=== PATIENT | female | born 1950 | race Caucasian/White ===

== ENCOUNTER 2021-05-17 16:15 | Emergency (ER) | payer MEDICARE, OTHER ==
[2021-05-17 16:34] VITALS: BP 144/80
--- NOTE | 2021-05-17 16:51 | ERPHSYRPT ---
- History of Present Illness Time Seen by Provider: 05/17/21 16:21 Source: patient Exam Limitations: no limitations Patient Subjective Stated Complaint: pt here for a fall, twisted left knee and landed on carpet striking left knee, now co pain to left knee Triage Nursing Assessment: pt alert, resp easy, skin w/p/d, face mask in place, no swelling noted, pain behind knee Physician History: 70 years old female with history of bilateral total knee arthroplasty presented in ER with chief complaint of fall and left knee pain. Patient reports she was walking at home, twisted her foot and fell on the floor hitting her left lateral knee against the floor. She was able to get up with help but later on noticed increased swelling of left knee on the upper aspect with difficulty movements/weightbearing. Pain is moderate to severe with ambulation/weightbearing and currently pain-free for being still. No injury anywhere else. Occurred: this afternoon Injuries/Pain Location: lower extremity Loss of Consciousness: no loss of consciousness Quality: sharpness Severity of Pain-Max: moderate Severity of Pain-Current: none Modifying Factors: Improves With: rest. Worsens With: movement Associated Symptoms (Fall): denies symptoms Allergies/Adverse Reactions: Sulfa (Sulfonamide Antibiotics) Adverse Reaction (Verified 05/17/21 16:35) Home Medications: Amlodipine Besylate 5 mg PO DAILY 05/17/21 [History] Atorvastatin Calcium 1 ea DAILY 05/17/21 [History] Azelastine Nasal [Astelin Nasal] 1 ea DAILY 05/17/21 [History] Calcium Carbonate/Vitamin D3 [Calcium 600 mg-D3 10 Mcg Sfgl] 1 ea DAILY 05/17/21 [History] Dicyclomine HCl 1 ea DAILY 05/17/21 [History] Gabapentin 100 mg [Neurontin 100 MG] 1 ea DAILY 05/17/21 [History] Multivitamin [Multivitamins] 1 ea DAILY 05/17/21 [History] Pantoprazole 20 mg [Protonix 20MG Tablet] 1 ea DAILY 05/17/21 [History] Spironolactone 25 mg [Aldactone 25 MG] 25 mg PO DAILY 05/17/21 [History] Hx Influenza Vaccination/Date Given: No Hx Pneumococcal Vaccination/Date Given: Yes (year ago) Immunizations Up to Date: Yes Travel Risk - International Travel Have you traveled outside of the country in past 3 weeks: No - Coronavirus Screening Are you exhibiting any of the following symptoms?: No - Vaccine Status Have you recieved a Covid-19 vaccination: No - Review of Systems Constitutional: No Symptoms Ears, Nose, & Throat: No Symptoms Respiratory: No Symptoms Cardiac: No Symptoms Abdominal/Gastrointestinal: No Symptoms Genitourinary Symptoms: No Symptoms Musculoskeletal: Arthralgias, Injury, Joint Pain, Joint Swelling Skin: No Symptoms Neurological: No Symptoms Psychological: No Symptoms Hematologic/Lymphatic: No Symptoms Immunological/Allergic: No Symptoms - Past Medical History Pertinent Past Medical History: Yes Neurological History: No Pertinent History Cardiac History: High Cholesterol, Hypertension Respiratory History: No Pertinent History Endocrine Medical History: No Pertinent History Musculoskeletal History: Osteoarthritis Other Medical History: L TKA, R JAVI, needs to have L JAVI - Past Surgical History Past Surgical History: Yes Gastrointestinal: Cholecystectomy Musculoskeletal: Orthopedic Surgery Other Surgical History: knee and hips replaced - Social History Smoking Status: Never smoker Exposure to second hand smoke: No Drug Use: none Patient Lives Alone: Yes - Female History Hx Last Menstrual Period: post Hx Now: No - Nursing Vital Signs Nursing Vital Signs: Initial Vital Signs Temperature 98.7 F 05/17/21 16:21 Pulse Rate 63 05/17/21 16:21 Respiratory Rate 16 05/17/21 16:21 Blood Pressure 144/80 05/17/21 16:21 O2 Sat by Pulse Oximetry 95 05/17/21 16:21 Pain Scale Pain Intensity 7 - [place] Coma Score Best Eye Response (Bruno): (4) open spontaneously Best Verbal Response ([place]): (5) oriented - Physical Exam General Appearance: no apparent distress Head Injury: no evidence of injury Eye Exam: PERRL/EOMI, eyes nml inspection ENT Exam: airway nml, No evidence of ENT injury Neck Exam: supple, full range of motion Respiratory/Chest Exam: normal breath sounds, respiratory distress Cardiovascular Exam: normal heart sounds, regular rate/rhythm Back Exam: normal inspection, normal range of motion Extremity Exam: joint swelling (Left knee above patella positive by Tarik. Tenderness on the lateral aspect. Mildly limited range of motion.), pain with movement Neurologic Exam: alert, oriented x 3, cooperative, lapel baster II-XII nml as tested Skin Exam: normal color SpO2 Interpretation: normal SpO2: 95 O2 Delivery: Room Air Ordered Tests: Active Orders 24 hr Category Date Time Status KNEE (3 VIEWS) Stat Exams 05/17/21 Completed Medication Summary Discontinued Medications Generic Name Dose Route Start Last Admin Trade Name Elsi PRN Reason Stop Dose Admin Hydrocodone Bitart/Acetaminophen 2 tab 05/17/21 17:59 05/17/21 18:46 Hydrocodone/Apap 5/325 Mg Tablet PO 05/17/21 18:00 2 tab SENT HOME W/ PATIENT ONE Administration Hydrocodone Bitart/Acetaminophen Confirm 05/17/21 18:41 Hydrocodone/Apap 5/325 Mg Tablet Administered 05/17/21 18:42 Dose 2 tab .ROUTE .STK-MED ONE - Progress Progress: unchanged Progress Note: 05/17/21 17:56 She does not want any pain medication currently. Does have some effusion but I did not appreciate any fracture dislocation. Hardware well in place. Placed in knee immobilizer and recommended outpatient orthopedic surgery follow-up. Counseled pt/family regarding: diagnosis, need for follow-up, rad results - Departure Departure Disposition: Home Clinical Impression: Acute pain of left knee Condition: Stable Critical Care Time: No Referrals: ROSE SILVA MD [Primary Care Provider] - Follow Up with PCP/3 days Instructions: Knee Sprain (DC), Preventing Falls Additional Instructions: Take pain medications as needed. Follow-up with [facility] clinic early Wednesday morning for reevaluation. Return to ER for worsening. Prescriptions: Hydrocodone/Acetaminophen [Hydrocodone-Acetamin 5-325 mg] 1 tab PO Q6HPRN PRN 3 Days #12 tablet MDD 4 PRN Reason: Pain
[2021-05-17] MEDS ORDERED: NORCO 5/325 MG PO ONE (17:59)
[2021-05-17 18:39] VITALS: PULSE 78
[2021-05-17] MEDS ORDERED: NORCO 5/325 MG ONE (18:41)
--- NOTE | 2021-05-17 19:58 | XRAY ---
Indication: Pain following fall. Comparison: None 3 view left knee demonstrates osteopenia, total knee arthroplasty with intact prosthesis, large nonspecific effusion, anterior soft tissue swelling, scattered medial subcutaneous venous varicosities, and mild scattered vascular calcifications. No other bony, articular, or soft tissue abnormalities.
[2021-05-17 21:18] VITALS: O2SAT 95
== END 2021-05-17 18:51 | disposition home or self-care (01) ==
LOC: ED 16:15
DX: M25.562 Pain in left knee (principal); W01.0XXA Fall on same level from slipping, tripping and stumbling without subsequent striking against object, initial encounter; Y92.009 Unspecified place in unspecified non-institutional (private) residence as the place of occurrence of the external cause; Z96.653 Presence of artificial knee joint, bilateral; I10 Essential (primary) hypertension; E78.5 Hyperlipidemia, unspecified; Z79.891 Long term (current) use of opiate analgesic
CPT/HCPCS: 73562; 99284; L1830; A9270-GY

== ENCOUNTER 2022-06-10 08:49 | Emergency (ER) | payer MEDICARE, OTHER ==
[2022-06-10] MEDS ORDERED: Sodium Chloride 0.9% 1000 ML 1,000 ML IV STA ×2 (09:18→11:37)
[2022-06-10 10:12] LABS: ANION GAP 12.3 MEQ/L (5-15); Calcium 8.5 mg/dL (8.4-10.2); Creatinine 1 1.07 mg/dL (0.52-1.04); EST GLOMERULAR FILTRATION RATE 53.4 ML/MIN
[2022-06-10 10:16] LABS: Potassium 2.9 mmol/L (3.5-5.1)
[2022-06-10] MEDS ORDERED: POTASSIUM CHLORIDE 20 mEq IN WATER 100ML 100 ML IV SCH (11:00)
[2022-06-10 11:15] VITALS: O2SAT 98
[2022-06-10] MEDS ORDERED: Sodium Chloride 0.9% 1000 ML 1,000 ML ONE ×2 (11:21→11:55)
--- NOTE | 2022-06-10 11:48 | ERPHSYRPT ---
- History of Present Illness Time Seen by Provider: 06/10/22 11:15 Source: patient Exam Limitations: no limitations Patient Subjective Stated Complaint: pt sent over from outpt infusion for abnormal labs and pauses on her rythm strip. she states she was sent there today for fluids because she has not been eating well for a week now. no vomiting , just states she doesnt feel like eating, Triage Nursing Assessment: pt arrived per wc, alert, resp easy, skin w/d/p. no pain, no edema, able to get undressed, has iv to right wrist per outpt Physician History: This is a 71-year-old white female who was sent to the emergency department from the infusion center where the patient was undergoing infusion of normal saline fluid because of a concern of dehydration. Patient contacted her nurse practitioner Wendy this morning and nurse practitioner Wendy sent the patient to the infusion center and labs were obtained. Her potassium was 2.9. They obtained a twelve-lead EKG where there was concern of some changes that should be evaluated further in the emergency department. Patient denied chest pain. She denies shortness of breath. She did state that she has had some abdominal discomfort that was generalized in location and more of an achiness in the last week. However in the last 2 days though symptoms seem to have resolved. Patient denies vomiting. She denies bright red blood per rectum. She denies dark tarry stools. Patient was sent to the emergency department with potassium infusion in place. Patient states that she does have a gusset maker Dr. Huseyin Rodriguez but she sees him not for any known cardiac issue but to control her blood pressure. Patient states she has an appointment to see him tomorrow morning. Patient has a history of hyperlipidemia, gastroesophageal reflux disease hypertension, bronchitis and osteoarthritis. Timing/Duration: today Severity: mild Associated Symptoms: abdominal pain, weakness, No nausea, No vomiting, No shortness of breath, No cough, No chest pain Allergies/Adverse Reactions: Sulfa (Sulfonamide Antibiotics) Adverse Reaction (Verified 06/10/22 11:13) Home Medications: Atorvastatin Calcium 1 ea DAILY 05/17/21 [History] Azelastine Nasal [Astelin Nasal] 1 ea DAILY 05/17/21 [History] Calcium Carbonate/Vitamin D3 [Calcium 600 mg-D3 10 Mcg Sfgl] 1 ea DAILY 05/17/21 [History] Dicyclomine HCl 1 ea DAILY 05/17/21 [History] Gabapentin [Neurontin ] 1 ea DAILY 05/17/21 [History] Multivitamin [Multivitamins] 1 ea DAILY 05/17/21 [History] Pantoprazole 20 mg [Protonix 20MG Tablet] 1 ea DAILY 05/17/21 [History] Spironolactone 25 mg [Aldactone 25 MG] 25 mg PO DAILY 05/17/21 [History] Alendronate Sodium [Fosamax] 70 mg PO WEEKLY 06/10/22 [History] Cetirizine HCl [Zyrtec] 10 mg PO DAILY PRN PRN 06/10/22 [History] Famotidine [Pepcid] 40 mg PO BID 06/10/22 [History] Guaifenesin 600 mg ER [Mucinex 600MG ER Tabs] 1,200 mg PO Q12H PRN PRN 06/10/22 [History] Levalbuterol HCl 1.25 MG/0.5M* [Xopenex 1.25 MG/0.5 ML UD NEBULE] 1.25 mg IH [id number] PRN 06/10/22 [History] Vit C/E/Zn/Coppr/Lutein/Zeaxan [Eye Multivitamin Softgel] 1 each PO DAILY 06/10/22 [History] carvediloL [Carvedilol] 25 mg PO BID 06/10/22 [History] Hx Tetanus, Diphtheria Vaccination/Date Given: No Hx Influenza Vaccination/Date Given: No Hx Pneumococcal Vaccination/Date Given: Yes Immunizations Up to Date: No Travel Risk - International Travel Have you traveled outside of the country in past 3 weeks: No - Coronavirus Screening Are you exhibiting any of the following symptoms?: No Close contact with a COVID-19 positive Pt in past 14-21 Days: No - Vaccine Status Have you recieved a Covid-19 vaccination: No - Review of Systems Constitutional: Weakness Eyes: No Symptoms Ears, Nose, & Throat: No Symptoms Respiratory: No Symptoms Cardiac: No Symptoms Abdominal/Gastrointestinal: Abdominal Pain (During the last week but less so in the last 2 days) Genitourinary Symptoms: No Symptoms Musculoskeletal: No Symptoms Skin: No Symptoms Neurological: No Symptoms Psychological: No Symptoms Endocrine: No Symptoms Hematologic/Lymphatic: No Symptoms Immunological/Allergic: No Symptoms All Other Systems: Reviewed and Negative - Past Medical History Pertinent Past Medical History: Yes Neurological History: Stroke ENT History: No Pertinent History Cardiac History: High Cholesterol, Hypertension Respiratory History: Bronchitis, Other Endocrine Medical History: No Pertinent History Musculoskeletal History: Osteoarthritis Other Medical History: SX HX: KATHERIN HIP AND KNEE REPLACEMENTS, pt denies a stroke but is not certain - Past Surgical History Past Surgical History: Yes Gastrointestinal: Cholecystectomy Musculoskeletal: Orthopedic Surgery Other Surgical History: knee and hips replaced - Social History Smoking Status: Never smoker Exposure to second hand smoke: No Drug Use: none Patient Lives Alone: No - Nursing Vital Signs Nursing Vital Signs: Initial Vital Signs Temperature 99.3 F 06/10/22 09:07 Pulse Rate 73 06/10/22 09:07 Respiratory Rate 16 06/10/22 09:07 Blood Pressure 114/60 06/10/22 09:07 O2 Sat by Pulse Oximetry 95 06/10/22 09:07 Pain Scale Pain Intensity 0 - Physical Exam General Appearance: no apparent distress, alert, anxiety Eye Exam: PERRL/EOMI, eyes nml inspection Ears, Nose, Throat Exam: normal ENT inspection, moist mucous membranes Neck Exam: normal inspection, non-tender, supple, full range of motion Respiratory Exam: normal breath sounds, lungs clear, airway intact, No chest tenderness, No respiratory distress Cardiovascular Exam: regular rate/rhythm, normal heart sounds, normal peripheral pulses Gastrointestinal/Abdomen Exam: soft, normal bowel sounds, No tenderness Pelvic Exam: not done Rectal Exam: not done Back Exam: normal inspection, normal range of motion, No CVA tenderness Extremity Exam: normal inspection, normal range of motion, pelvis stable Neurologic Exam: alert, oriented x 3, cooperative, bioinformatics programmer II-XII nml as tested, normal mood/affect, nml cerebellar function, nml station & gait, sensation nml Skin Exam: normal color, warm, dry Lymphatic Exam: No adenopathy SpO2 Interpretation: normal SpO2: 98 O2 Delivery: Room Air - Course Nursing assessment & vital signs reviewed: Yes EKG Interpreted by Me: RATE (98), A-fib, NORMAL QRS, Other (No acute ischemic changes on today's EKG.) Ordered Tests: Active Orders 24 hr Category Date Time Status EKG-ER Only STAT Care 06/10/22 11:37 Active ABDOMEN AND PELVIS W/0 CONTRAS [CT] Stat Exams 06/10/22 11:38 Completed AMYLASE Stat Lab 06/10/22 11:51 Completed BMP Stat Lab 06/10/22 09:45 Completed BMP Stat Lab 06/10/22 13:52 Completed CBC W DIFF Stat Lab 06/10/22 11:51 Completed LIPASE Stat Lab 06/10/22 11:51 Completed MAGNESIUM Stat Lab 06/10/22 11:51 Completed Manual Differential NC Stat Lab 06/10/22 11:51 Completed TROPONIN Q4H Lab 06/10/22 11:51 Completed TROPONIN Q4H Lab 06/10/22 15:45 Ordered TROPONIN Q4H Lab 06/10/22 19:45 Ordered Medication Summary Discontinued Medications Generic Name Dose Route Start Last Admin Trade Name Freq PRN Reason Stop Dose Admin Sodium Chloride 1,000 mls @ 999 mls/hr 06/10/22 09:18 06/10/22 13:07 Sodium Chloride 0.9% 1000 Ml IV 06/10/22 10:18 Infused .Q1H1M STA Infusion Potassium Chloride 100 mls @ 50 mls/hr 06/10/22 11:00 06/10/22 10:56 Potassium Chloride 20 Meq In Water 100ml IV 06/10/22 12:59 50 mls/hr 1100 SARAH Administration Sodium Chloride Confirm 06/10/22 11:21 Sodium Chloride 0.9% 1000 Ml Administered 06/10/22 11:22 Dose 1,000 mls @ ud .ROUTE .STK-MED ONE Sodium Chloride 1,000 mls @ 999 mls/hr 06/10/22 11:37 06/10/22 13:08 Sodium Chloride 0.9% 1000 Ml IV 06/10/22 12:37 Infused .Q1H1M STA Infusion Sodium Chloride Confirm 06/10/22 11:55 Sodium Chloride 0.9% 1000 Ml Administered 06/10/22 11:56 Dose 1,000 mls @ ud .ROUTE .STK-MED ONE Lab/Rad Data: Laboratory Result Diagrams 06/10/22 11:51 06/10/22 13:52 Laboratory Results 06/10/22 06/10/22 06/10/22 Range/Units 13:52 11:51 11:51 WBC (4.0-10.5) x10^3/uL RBC (4.1-5.4) x10^6/uL Hgb (12.0-16.0) g/dL Hct (35-47) % MCV (78-100) fL MCH (26-32) pg MCHC (32-36) g/dL RDW (11.5-14.0) % Plt Count (150-450) x10^3/uL MPV (7.5-11.0) fL Gran % (36.0-66.0) % Immature Gran % (Auto) (0.00-0.4) % Nucleat RBC Rel Count (0.00-0.1) % Eos # (Auto) (0-0.5) x10^3/uL Immature Gran # (Auto) (0.00-0.03) x10^3u/L Absolute Lymphs (auto) (1.0-4.6) x10^3/uL Absolute Monos (auto) (0.0-1.3) x10^3/uL Absolute Nucleated RBC (0.00-0.01) x10^3u/L Lymphocytes % (24.0-44.0) % Monocytes % (0.0-12.0) % Eosinophils % (0.00-5.0) % Basophils % (0.0-0.4) % Absolute Granulocytes (1.4-6.9) x10^3/uL Segmented Neutrophils (36.0-66.0) % Lymphocytes (Manual) (24-44) % Monocytes (Manual) (0.0-12.0) % Eosinophils (Manual) (0.00-3.0) % Basophils # (0-0.4) x10^3/uL Atypical Lymphocytes % Platelet Estimate (NORMAL) RBC Morphology Sodium 135 L (137-145) mmol/L Potassium 3.4 L (3.5-5.1) mmol/L Chloride 104 (98-107) mmol/L Carbon Dioxide 28 (22-30) mmol/L Anion Gap 6.7 (5-15) MEQ/L BUN 16 (7-17) mg/dL Creatinine 0.82 (0.52-1.04) mg/dL Estimated GFR > 60.0 ML/MIN Glucose 91 (74-106) mg/dL Calcium 7.7 L (8.4-10.2) mg/dL Magnesium 2.6 H (1.6-2.3) mg/dL Troponin I 0.013 (0.000-0.034) ng/mL Amylase 60 (30-110) U/L Lipase 123 (23-300) U/L 06/10/22 06/10/22 Range/Units 11:51 09:45 WBC 4.5 (4.0-10.5) x10^3/uL RBC 4.20 (4.1-5.4) x10^6/uL Hgb 12.9 (12.0-16.0) g/dL Hct 40.2 (35-47) % MCV 95.7 (78-100) fL MCH 30.7 (26-32) pg MCHC 32.1 (32-36) g/dL RDW 13.6 (11.5-14.0) % Plt Count 188 (150-450) x10^3/uL MPV 9.2 (7.5-11.0) fL Gran % 55.1 (36.0-66.0) % Immature Gran % (Auto) 0.4 (0.00-0.4) % Nucleat RBC Rel Count 0.0 (0.00-0.1) % Eos # (Auto) 0.11 (0-0.5) x10^3/uL Immature Gran # (Auto) 0.02 (0.00-0.03) x10^3u/L Absolute Lymphs (auto) 1.51 (1.0-4.6) x10^3/uL Absolute Monos (auto) 0.35 (0.0-1.3) x10^3/uL Absolute Nucleated RBC 0.00 (0.00-0.01) x10^3u/L Lymphocytes % 33.6 (24.0-44.0) % Monocytes % 7.8 (0.0-12.0) % Eosinophils % 2.4 (0.00-5.0) % Basophils % 0.7 (0.0-0.4) % Absolute Granulocytes 2.48 (1.4-6.9) x10^3/uL Segmented Neutrophils 51 (36.0-66.0) % Lymphocytes (Manual) 34 (24-44) % Monocytes (Manual) 10 (0.0-12.0) % Eosinophils (Manual) 2 (0.00-3.0) % Basophils # 0.03 (0-0.4) x10^3/uL Atypical Lymphocytes 3 % Platelet Estimate NORMAL (NORMAL) RBC Morphology NORMAL Sodium 136 L (137-145) mmol/L Potassium 2.9 L* (3.5-5.1) mmol/L Chloride 98 (98-107) mmol/L Carbon Dioxide 29 (22-30) mmol/L Anion Gap 12.3 (5-15) MEQ/L BUN 20 H (7-17) mg/dL Creatinine 1.07 H (0.52-1.04) mg/dL Estimated GFR 53.4 ML/MIN Glucose 111 H (74-106) mg/dL Calcium 8.5 (8.4-10.2) mg/dL Magnesium (1.6-2.3) mg/dL Troponin I (0.000-0.034) ng/mL Amylase (30-110) U/L Lipase (23-300) U/L - Progress Progress: improved, re-examined Progress Note: 06/10/22 11:58 Medical decision making: This patient was sent over from the infusion clinic and we obtained history from the nursing staff at that facility as well as reviewing old records here at [facility]. We also obtained information from the labs that were drawn earlier this morning. I reviewed those labs and made additional changes. Patient has a history of chronic hypertension. I reviewed the EKG myself that was performed earlier today and based on the above I am ordering additional lab work including magnesium amylase lipase and obtaining a CAT scan of the abdomen and pelvis. We will repeat the twelve-lead EKG based on the patient's prior EKG findings and lab work. We will give additional intravenous fluid and repeat a BMP to determine if the patient needs additional potassium supplementation. 06/10/22 13:21 CT scan of the abdomen pelvis without contrast shows an enlarging left inguinal hernia without complications. There is no evidence of free air. There is no evidence of intra-abdominal free fluid. There is no evidence of diverticulitis. 06/10/22 14:29 Medical decision making: Patient states that she has no pain whatsoever. After rehydration, she states she is feeling better. She ate a sandwich here in the emergency department. Her diagnosis is hypokalemia. We have made a packet that she can provide her gusset maker at tomorrow's appointment that includes today's twelve-lead EKG and laboratory results. Patient is being discharged to home with instructions to take potassium 10 mEq twice a day for 2 days and to return to the laboratory department on 06/12/2022 to repeat BMP. Results will be faxed to nurse practitioner Wendy. Counseled pt/family regarding: lab results, diagnosis, need for follow-up, rad results - Departure Departure Disposition: Home Clinical Impression: Mild dehydration, Hypokalemia Condition: Stable Critical Care Time: No Referrals: ROSE SILVA MD [Primary Care Provider] - Follow up/PCP as directed Additional Instructions: Drink plenty of fluids. Advance diet as tolerated. Take your medication as prescribed. Keep your appointment with your gusset maker for tomorrow morning. Return to [facility] laboratory department on 06/12/2022 for repeat lab draw. Prescriptions: Potassium Chloride Tab* [Klor Con] 10 meq PO BID #4 tab
[2022-06-10 11:54] LABS: Absolute Neutrophil Ct (ANC) 2.48 x10^3/uL (1.4-6.9); Basophil (Absolute #) 0.03 x10^3/uL (0-0.4); Eosinophil % 2.4 % (0.00-5.0); Eosinophil (Absolute #) 0.11 x10^3/uL (0-0.5); Hematocrit 40.2 % (35-47); Hemoglobin 12.9 g/dL (12.0-16.0); Lymphocyte (Absolute #) 1.51 x10^3/uL (1.0-4.6); Lymphocytes % 33.6 % (24.0-44.0); Mean Cell Volume 95.7 fL (78-100); Mean Corpuscular Hemoglobin 30.7 pg (26-32); Mean Corpuscular Hgb Concent. 32.1 g/dL (32-36); Mean Platelet Volume 9.2 fL (7.5-11.0); Monocyte (Absolute #) 0.35 x10^3/uL (0.0-1.3); Monocytes % 7.8 % (0.0-12.0); Neutrophil % 55.1 % (36.0-66.0); Platelet Count 188 x10^3/uL (150-450); Red Cell Distribution Width 13.6 % (11.5-14.0); White Blood Count 4.5 x10^3/uL (4.0-10.5)
[2022-06-10 12:08] LABS: MAGNESIUM 2.6 mg/dL (1.6-2.3)
[2022-06-10 13:04] LABS: ATYPICAL LYMPHS 3 %; Eosinophil 2 % (0.00-3.0); Lymphocytes 34 % (24-44); Monocyte 10 % (0.0-12.0); Platelet Estimate NORMAL (NORMAL); Total Cells Counted 100
--- NOTE | 2022-06-10 13:18 | XRAY ---
Indication: Diarrhea. Decreased appetite. Multiple contiguous axial images obtained through the abdomen and pelvis without contrast. Comparison: May 08, 2015 Lung bases again demonstrate minimal dependent atelectasis. No infiltrate or effusion. Heart not enlarged. There has been interval left total hip arthroplasty with stable right hip arthroplasty, both producing extensive beam artifact limiting evaluation of the pelvis. Noncontrasted stomach and bowel loops nonobstructed. Normal appendix. Again descending and sigmoid diverticulosis without diverticulitis. Again cholecystectomy. No free fluid/air. Remaining liver, pancreas, spleen, adrenal glands, kidneys, ureters, bladder, and uterus are unremarkable for noncontrast exam. Again moderate scattered aortoiliac calcifications without AAA. Osseous structures intact again with mild osteopenia, mild degenerative changes throughout the spine, and minimal grade 1 L4 anterolisthesis. Interval enlarging left inguinal hernia at least 3.7 cm in diameter with loop of small bowel herniating without incarceration/obstruction. Impression: 1. Pelvis limited due to worsening extreme beam artifact from bilateral total hip arthroplasty. 2. Interval enlarging left inguinal hernia without complications. 3. Again colonic diverticulosis, arteriosclerotic disease, and chronic bony findings. 4. Remaining CT abdomen/pelvis without contrast exam is negative.
[2022-06-10 14:09] LABS: ANION GAP 6.7 MEQ/L (5-15); BLOOD UREA NITROGEN 16 mg/dL (7-17); CHLORIDE 104 mmol/L (98-107); Calcium 7.7 mg/dL (8.4-10.2); Carbon Dioxide 28 mmol/L (22-30); Creatinine 1 0.82 mg/dL (0.52-1.04); EST GLOMERULAR FILTRATION RATE > 60.0 ML/MIN; Glucose 91 mg/dL (74-106); Potassium 3.4 mmol/L (3.5-5.1); SODIUM 135 mmol/L (137-145)
[2022-06-10 14:37] VITALS: BP 122/80; PULSE 75
== END 2022-06-10 14:48 | disposition home or self-care (01) ==
LOC: INFUSION 08:49 → ED 08:49 → EDSTATUS 11:07 → ED 14:48
DX: E86.0 Dehydration (principal); E87.6 Hypokalemia; R94.31 Abnormal electrocardiogram [ECG] [EKG]; E78.5 Hyperlipidemia, unspecified; I10 Essential (primary) hypertension; Z79.899 Other long term (current) drug therapy; Z28.310 Unvaccinated for COVID-19
CPT/HCPCS: 36415; 74176; 80048; 82150; 83690; 83735; 84484; 85025; 93005; 96360; 96361; 96365; 96366; 99211; 99284; J3480

== ENCOUNTER 2025-01-01 08:14 | Day surgery (SDC) | payer MEDICARE, OTHER ==
[2025-01-01] MEDS ORDERED: Lactated Ringers 1,000 ML IV ONE (08:18)
--- NOTE | 2025-01-01 08:27 | HP ---
HISTORY OF PRESENT ILLNESS: No prior upper endoscopy. Family history of colon cancer. Some narrowing and dilated in the past. Was in the hospital with reflux. Has intermittent hoarseness from allergies. Patient has all the time. No epigastric pain currently. PAST MEDICAL HISTORY: Reflux, CHF, hyperlipidemia, hypertension. MEDICATIONS: Calcium 500 plus vitamin D, Mucinex Allergy, benzonatate, amlodipine, famotidine, omeprazole, atorvastatin, dicyclomine, spironolactone, carvedilol, PreserVision AREDS capsules, gabapentin, Nitrostat p.r.n., Carafate. ALLERGIES: Metoclopramide and sulfa and peanuts. PAST SURGICAL HISTORY: Had sinus surgery, had cholecystectomy in the past, had cardiac cath in the past, had bilateral hip arthroplasty, had bilateral knee arthroplasty SOCIAL HISTORY: No smoker. No alcohol abuse. FAMILY HISTORY: Heart disease. REVIEW OF SYSTEMS: Twelve systems reviewed. No chest pain or palpitations. Other systems negative or noncontributory as above and per preadmission questionnaire. PHYSICAL EXAMINATION: GENERAL: Height 5 feet 4 inches, BMI 27.64. No acute distress. HEENT: Sclerae anicteric. Extraocular movements are intact. NECK: No JVD. CARDIOVASCULAR: Regular rate and rhythm. RESPIRATORY: Clear. ABDOMEN: Soft. SKIN: Dry. EXTREMITIES: No cyanosis or edema. NEUROLOGIC: Alert and oriented, moving all extremities symmetrically. PSYCHIATRIC: Appropriate mood and affect. ASSESSMENT: History of some reflux. Needs EGD and possible biopsy. Risks explained in detail including but not limited to bleeding, infection; risk of missed or nondiagnosis or incomplete exam possibly requiring barium swallow; general risk of anesthesia or sedation. Otherwise, continue medications for reflux, hypertension, heart disease. PLAN: Schedule outpatient EGD with possible biopsy.
[2025-01-01] MEDS: Lactated Ringers 1,000 ML IV SCH (08:32)
[2025-01-01 08:35] VITALS: RESP 18
[2025-01-01] MEDS ORDERED: Pepcid 20 MG VIAL IV ONE (08:53)
[2025-01-01] MEDS: Pepcid 20 MG VIAL IV ONE (08:58)
[2025-01-01 09:07] LABS: Calcium 9.6 mg/dL (8.4-10.2); Carbon Dioxide 26.0 mmol/L (22-30); Creatinine 1 0.81 mg/dL (0.52-1.04); EST GLOMERULAR FILTRATION RATE 75.2 ML/MIN; Glucose 105.0 mg/dL (74-106); Potassium 4.0 mmol/L (3.5-5.1)
[2025-01-01] MEDS ORDERED: propofoL IV ONE (10:26)
[2025-01-01 11:22] VITALS: BP 114/77; PULSE 67; TEMP 98.8; O2SAT 97
--- NOTE | 2025-01-02 11:53 | OP ---
SURGERY DATE/TIME: 01/01/2025 [id number] PREOPERATIVE DIAGNOSIS: Some reflux. POSTOPERATIVE DIAGNOSES: 1) Gastritis. 2) Benign-appearing gastric polyps. 3) Very slight venous hiatus without any evidence of any large hiatal hernia. 4) Presbyesophagus without any isolated obstruction or gross masses. PROCEDURE: 1) Esophagogastroduodenoscopy. 2) Cold biopsy of antrum for H pylori. 3) Cold biopsy of benign-appearing fundal gland gastric polyps. 4) Cold biopsy of distal esophagus to evaluate for early inflammation. SURGEON: Ryder Lopez MD ANESTHESIA: MAC. ESTIMATED BLOOD LOSS: None. INDICATIONS: Consent obtained. DESCRIPTION OF PROCEDURE AND FINDINGS: The patient was taken to the endoscopy room. MAC anesthesia induced. After official time-out and no disagreement in planned procedure, bite block positioned. Videogastroscope passed down the esophagus through patent pylorus to the junction of the third and fourth portions of duodenum. Duodenum grossly unremarkable. Scope pulled back into the stomach. She had gastric erythema, signs of some mild chronic gastritis. Cold biopsy was taken to evaluate for H pylori. She did have several benign-appearing fundal gland-type polyps. Cold biopsy of 2 or 3 of these was accomplished. There was kind of a motion with the patient moving a lot, but was able to get some biopsies. On retroflex, there was no evidence of any large hiatal hernia. She may have had just a slight hiatal weakness but no large hiatal hernia. Scope was straightened. In distal esophagus, she had a little rim of early Schatzki's but no evidence of any obstruction. There was no evidence of any gross Soliman's or ulceration and the esophageal mucosa appeared fairly unremarkable with cold biopsy accomplished in distal esophagus for histologic evaluation. No signs of any gross masses. She did have some tertiary contractions in esophagus and some presbyesophagus but no signs of any significant erosions or Soliman's on endoscopic view. Scope was withdrawn. Findings discussed with the family or friend in the waiting area.
== END 2025-01-01 11:40 | disposition home or self-care (01) ==
LOC: SDC 08:14
PROVIDERS: ATTEND Surgery
DX: K29.70 Gastritis, unspecified, without bleeding (principal); K21.9 Gastro-esophageal reflux disease without esophagitis; Z80.0 Family history of malignant neoplasm of digestive organs; I10 Essential (primary) hypertension; K31.7 Polyp of stomach and duodenum; K22.89 Other specified disease of esophagus